=== PATIENT | female | born 1980 | race Caucasian/White ===

== ENCOUNTER → 2023-10-02 17:51 | Outpatient (REF) | payer BC, SELFPAY | LOC: WDC 17:51 | PROVIDERS: ATTENDING PHYSICIAN Obstetrics & Gynecology; FAMILY PHYSICIAN Internal Medicine | DX: Z12.31 Encounter for screening mammogram for malignant neoplasm of breast (principal) | CPT/HCPCS: 77063; 77067 ==

== ENCOUNTER → 2024-02-01 08:08 | Outpatient (REF) | payer BC, SELFPAY | LOC: RCS 08:08 | PROVIDERS: ATTENDING PHYSICIAN Student in an Organized Health Care Education/Training Program; FAMILY PHYSICIAN Nurse Practitioner Family | DX: I34.0 Nonrheumatic mitral (valve) insufficiency (principal) | CPT/HCPCS: 93306 ==

== ENCOUNTER 2024-05-30 09:41 | Emergency (ER) | payer BC, SELFPAY ==
[2024-05-30 09:45] VITALS: BP 136/94
[2024-05-30 10:31] VITALS: BMI 24.1
[2024-05-30 10:43] VITALS: BP 140/88
--- NOTE | 2024-05-30 10:50 | ED.GENMED ---
History of Present Illness
General
Chief Complaint: Cardiac Symptoms
Time Seen by Provider: 05/30/24 10:19
History of Present Illness
History of Present Illness:
43-year-old female without any significant past medical history presenting to the emergency department for concern of elevated heart rate. Patient reports after working out yesterday in the morning, she noticed that her heart rate never completely
recovered, with heart rate above 100 throughout the day. Reports that her resting heart rate usually in the 60s. Does note underlying anxiety, however does not suspect that this is contributing to it. Denies chest pain. Does note some dyspnea.
Denies any history of blood clots, recent surgery, recent travel, exogenous estrogen. Denies any issues with her thyroid. Denies abdominal pain or GI symptoms. Denies additional acute medical complaints
Past History
Past History
ED Past Medical History: None
ED Past Surgical History: None
Social History
Tobacco: Non-smoker
Alcohol: None
Drug: None
Living: with family
Employment: Employed
Phy Exam
Physical Exam
Physical Exam:
General: Well-appearing, no clinical signs of dehydration, nontoxic and in no acute distress
HEENT: protecting airway
Neck: appears supple
CV: Normal heart rate, regular rhythm, no evidence of cyanosis
Resp: No accessory muscle use, no increased work of breathing, lungs clear to auscultation bilaterally
Abd: Soft and non-distended, no tenderness to palpation
Extremities: No deformities, no swelling, no erythema
Neuro: alert, no focal neurologic deficit
: deferred
Rectal: deferred
Psych: Normal affect
Skin: Intact
Course
Orders/Labs/Results
Orders:
Orders
05/30/24 09:47
Electrocardiogram (*1) Urgent
Reason for Study: Palpitations
EKG- Treatment ONCE
05/30/24 10:28
Test Result ONCE
05/30/24 10:44
Complete Blood Count/With Diff Urgent
Comprehensive Metabolic Panel Urgent
D-Dimer Urgent
HCG, Serum Qualitative Screen Urgent
TSH Reflex To Free T4 Urgent
Troponin I Urgent
Abnormal Lab Results
05/30/24
10:44
Absolute Lymphs (auto) 0.7 L 10^3/uL
(1.2-3.4)
Absolute Monos (auto) 1.0 H 10^3/uL
(0.1-0.6)
Lymphocytes % 11.5 L %
(20.5-51.1)
Monocytes % 16.2 H %
(1.7-9.3)
Glucose 106 H mg/dl
(70-99)
05/30/24 10:44
05/30/24 10:44
Vital Signs
Initial and Last Documented VS:
Initial Vital Signs
Temp Pulse Resp BP Pulse Ox
97.6 F 110 16 136/94 100
05/30/24 09:45 05/30/24 09:45 05/30/24 09:45 05/30/24 09:45 05/30/24 09:45
Last Documented Vital Signs
Temp Pulse Resp BP Pulse Ox
97.6 F 81 15 131/86 100
05/30/24 09:45 05/30/24 11:00 05/30/24 11:00 05/30/24 11:00 05/30/24 11:00
MDM/Problems Addressed
MDM/Problems Addressed:
43-year-old female presenting to the emergency department for concern of elevated heart rate. Vital signs on arrival are normal.
On exam patient is resting comfortably, no acute distress or discomfort. Heart rate is presently normal. EKG without acute ischemic abnormality or arrhythmia. Unclear etiology of patient's fluctuating heart rate. No PE risk factors, however will
screen with D-dimer, notes that she was feeling short of breath. Will check TSH. Will check electrolyte panel.
14:00 - Labs unremarkable, negative dimer, negative troponin. No concern for PE or ACS at this time. TSH within normal limits. Patient otherwise remains hemodynamic stable. Did discuss with cardiology, agree with outpatient follow-up. Patient
follows with Dr. Alcazar. Feel stable for discharge, however advising outpatient cardiology follow-up for potential Holter monitoring. Return precautions discussed and patient verbalized understanding
*EKG
Interpreted by ED Provider?: Yes
EKG Intrepretation Date: 05/30/24
EKG Intrepretation Time: 10:54
Interpretation: normal
Heart Rate: 90
Rate: normal
Rhythm: sinus
[place]: normal axis
Interval: normal interval
QRS Pattern: normal QRS
Ischemia: no ischemia
*Critical Care Note
Total Time (30-74mins, 75-104mins- exclusive of procedures): Not Applicable
ED Attending Note
-
Portions of this chart may have been created with voice recognition software.� Occasional wrong word or��sound alike� substitutions may have occurred due to the inherent limitations of voice recognition software.
Discharge Plan
Departure
Patient with high blood pressure during this ER visit?: No
Condition: Good
Discharge Problem:
Tachycardia
Instructions: Tachycardia, Palpitations - ED discharge instructions
Prescriptions:
No Action
Paxlovid 300 mg (150 mg x 2)-100 mg tablets,dose pack
See Rx Instructions .ROUTE .COMPLEX Qty: 30 0RF
Rx Instructions:
take TWO 150 mg tablets of nirmatrelvir with ONE 100 mg tablet of ritonavir twice daily for 5 days
Referrals:
Magen Alcazar MD [Active] -
Rasheeda Azevedo CRNP [Family Provider] -
Activity Restrictions/Additional Instructions:
You were seen in the emergency department for concern of elevated heart rate
You were found to have normal blood work and EKG. Please follow-up closely with the advertising internship.
Please follow-up closely with your primary care physician.
Return to the emergency department for any worsening of your symptoms, or any development of chest pain, difficulty breathing, abdominal pain with persistent vomiting and inability to tolerate food or liquid by mouth (concern for dehydration),
weakness, headache or confusion, fever greater than 100.4, or any additional symptoms that are concerning to you.
Thank you for choosing [facility].
Interventions
Interventions:
*Risk Screen - Suicide Last Done: 05/30/24 09:47
*General Assessment Last Done: 05/30/24 10:42
*Neglect/Abuse Screening Last Done: 05/30/24 09:47
*ED- Fall Risk Assessment Last Done: 05/30/24 10:42
*ED COVID-19 Vaccine History Last Done: 05/30/24 10:42
ED- Pulmonary Assessment Last Done: 05/30/24 10:49
ED- Cardiac Assessment Last Done: 05/30/24 10:49
Discharge Date and Time
Print Language: HONDURAN
[2024-05-30 10:55] LABS: % Basophils 0.7 % (0-2); % Eosinophils 2.2 % (0-6); % Immature Granulocytes 0.5 % (0-0.5); % Lymphocytes 11.5 % (20.5-51.1); % Monocytes 16.2 % (1.7-9.3); % Neutrophils 68.9 % (42.2-75.2); Absolute Eosinophils 0.1 10^3/uL (0-0.7); Absolute Lymphocytes 0.7 10^3/uL (1.2-3.4); Absolute Neutrophils 4.1 10^3/uL (1.4-6.5); Hematocrit 40.6 % (37.0-47.0); Hemoglobin 13.9 g/dL (12.0-16.0); Mean Corp Hgb Conc. 34.2 g/dL (33.0-37.0); Mean Corpuscular Hgb 30.3 pg (27.0-31.0); Mean Corpuscular Volume 88.5 fL (81.0-99.0); Mean Platelet Volume 9.7 fL (7.4-10.4); Nucleated Red Blood Cells % 0 %; Platelet Count 257 10^3/uL (130-400); Red Blood Cell Count 4.59 10^6/uL (4.20-5.40)
[2024-05-30 11:00] VITALS: BP 131/86
[2024-05-30 11:07] LABS: ALT (SGPT) 22 U/L (0-35); AST (SGOT) 26 U/L (14-36); Albumin 4.4 g/dl (3.5-5.0); Alkaline Phosphatase 62 U/L (38-126); Blood Urea Nitrogen 12 mg/dl (7-17); Calcium 9.1 mg/dl (8.4-10.2); Carbon Dioxide 23 mmol/L (22-30); Chloride 104 mmol/L (98-107); Estimated Creatinine Clearance 82 ml/min; Glucose 106 mg/dl (70-99); HCG, Serum Qualitative Screen Negative; Potassium 4.1 mmol/L (3.5-5.1); Sodium 137 mmol/L (135-145); Total Bilirubin 0.6 mg/dl (0.2-1.3); Total Protein 7.3 g/dl (6.3-8.2); eGFR > 60.00
[2024-05-30 11:12] LABS: D-Dimer < 0.27 ug/mlFEU (0.00-0.50)
[2024-05-30 11:19] LABS: Troponin I < 0.012 ng/ml
[2024-05-30 11:39] LABS: TSH Reflex To Free T4 1.57 uIU/ml (0.47-4.68)
[2024-05-30 14:11] VITALS: BP 130/67
== END 2024-05-30 14:11 | disposition home or self-care (01) ==
LOC: EMR 09:41
PROVIDERS: EMERGENCY PHYSICIAN Student in an Organized Health Care Education/Training Program; FAMILY PHYSICIAN Nurse Practitioner Family
DX: R00.0 Tachycardia, unspecified (principal); R06.02 Shortness of breath; F41.9 Anxiety disorder, unspecified
CPT/HCPCS: 99284; 80053; 84443; 84484; 84703; 85025; 85379; 93005

== ENCOUNTER → 2024-05-31 13:44 | Outpatient (REF) | payer BC, SELFPAY | LOC: RCS 13:44 | PROVIDERS: ATTENDING PHYSICIAN Student in an Organized Health Care Education/Training Program | DX: I34.0 Nonrheumatic mitral (valve) insufficiency (principal); R03.0 Elevated blood-pressure reading, without diagnosis of hypertension; R61 Generalized hyperhidrosis | CPT/HCPCS: 93225; 93226 ==

== ENCOUNTER → 2024-06-18 13:36 | Outpatient (REF) | payer BC, SELFPAY | LOC: RCS 13:36 | PROVIDERS: ATTENDING PHYSICIAN Student in an Organized Health Care Education/Training Program; FAMILY PHYSICIAN Nurse Practitioner Family | DX: R00.2 Palpitations (principal); R00.0 Tachycardia, unspecified | CPT/HCPCS: 93308; 93321; 93325 ==

== ENCOUNTER → 2024-10-15 12:08 | Outpatient (REF) | payer BC, SELFPAY | LOC: WDC 12:08 | PROVIDERS: ATTENDING PHYSICIAN Obstetrics & Gynecology; FAMILY PHYSICIAN Nurse Practitioner Family | DX: Z12.31 Encounter for screening mammogram for malignant neoplasm of breast (principal) | CPT/HCPCS: 77063; 77067 ==